=== PATIENT | male | born 1925 | race Caucasian/White ===

== ENCOUNTER → 2016-05-21 | Outpatient (CLI) | payer OTHER | LOC: BMCIMAGING 15:45 | PROVIDERS: ATTEND Internal Medicine | DX: M43.12 Spondylolisthesis, cervical region (principal); M43.14 Spondylolisthesis, thoracic region; M46.93 Unspecified inflammatory spondylopathy, cervicothoracic region | CPT/HCPCS: G0463-PO ==

== ENCOUNTER → 2016-05-28 | Outpatient (CLI) | payer OTHER | LOC: FIMAGING 09:45 | PROVIDERS: ATTEND Internal Medicine | DX: M46.92 Unspecified inflammatory spondylopathy, cervical region (principal); M47.892 Other spondylosis, cervical region; M48.02 Spinal stenosis, cervical region ==

== ENCOUNTER 2016-08-08 12:51 | Day surgery (SDC) | payer OTHER ==
[2016-08-08] MEDS ORDERED: fentaNYL 100 MCG/2 ML INJ ONE (14:44)
[2016-08-08] MEDS ORDERED: MIDAZOLAM 2 MG/2 ML VIAL ONE (14:44)
[2016-08-08] MEDS ORDERED: DEPO METHYLPREDNISOLONE 80 MG/ML SDV ONE (15:37)
[2016-08-08] MEDS ORDERED: BUPIVACAINE 0.5% 30 ML SDV ONE (15:37)
[2016-08-08] MEDS ORDERED: LIDOCAINE 1% 300 MG/30 ML SDV ONE (15:37)
== END 2016-08-08 16:30 | disposition home or self-care (01) ==
LOC: FIMAGING 12:51
PROVIDERS: ATTEND Anesthesiology
PROC: 3E0T3BZ Introduction of Anesthetic Agent into Peripheral Nerves and Plexi, Percutaneous Approach (ICD-10-PCS; principal; 2016-08-08 15:40)
PROC: 3E0T33Z Introduction of Anti-inflammatory into Peripheral Nerves and Plexi, Percutaneous Approach (ICD-10-PCS; principal; 2016-08-08 15:40)
DX: M54.12 Radiculopathy, cervical region (principal); Z85.46 Personal history of malignant neoplasm of prostate
CPT/HCPCS: J1040; J2250; J3010